=== PATIENT | female | born 1990 | race Caucasian/White ===

== ENCOUNTER 2018-06-30 19:46 | Emergency (ER) | payer BC ==
--- NOTE | 2018-06-30 20:12 | ED ---
Lower Extremity - HPI Summary HPI Summary: [facility] patient [facility] 27 [facility] [place] status post fall from a horse when the horse stumbled. Pt reports that she was not wearing a helmet when she fell. The patient rates the pain 2/10 in severity. Symptoms aggravated by nothing. Symptoms alleviated by nothing. Patient reports dizziness (resolved), right ankle pain, and right ankle swelling. Patient denies headache and neck pain. - History of Current Complaint Chief Complaint: EDExtremityLower Stated Complaint: FALL Time Seen by Provider: 06/30/18 20:04 Hx Obtained From: Patient Mechanism Of Injury: Fall From Height Of: - Horse Onset of Pain: Immediate, Post Accident Onset/Duration: Still Present Severity Initially: Mild Severity Currently: Mild Pain Intensity: 2 Pain Scale Used: 0-10 Numeric Timing: Constant Location: Is Discrete @ - Right ankle Character Of Pain: Throbbing Associated Signs And Symptoms: Positive: Other - Positive dizziness (resolved) and right ankle swelling. Negative headache and neck pain. Aggravating Factor(s): Movement Alleviating Factor(s): Nothing PMH/Surg Hx/FS Hx/Imm Hx Previously Healthy: Yes Opthamlomology History: Denies: Hx Legally Blind EENT History: Denies: Hx Deafness - Surgical History Hx Anesthesia Reactions: No Infectious Disease History: No Infectious Disease History: Denies: Traveled Outside the [place] in Last 30 Days - Family History Known Family History: Positive: Diabetes Negative: Cardiac Disease - Social History Occupation: Employed Full-time Lives: With Family Alcohol Use: Occasionally Hx Substance Use: No Substance Use Type: Reports: None Hx Tobacco Use: No Smoking Status (MU): Unknown if Ever Smoked Review of Systems Positive: Other - Positive right ankle pain and right ankle swelling. Negative neck pain Neurological: Other - Positive dizziness Negative: Headache All Other Systems Reviewed And Are Negative: Yes Physical Exam - Summary Physical Exam Summary: Appearance: Well-appearing, Well-nourished, lying in bed comfortable, no signs of head trauma Skin: Warm, dry, no obvious rash Eyes: sclera anicteric, no conjunctival pallor ENT: mucous membranes moist Neck: full ROM, no tenderness Respiratory: No signs of respiratory distress Cardiovascular: Appears well perfused, pulses are nml Abdomen: deferred Musculoskeletal: Moving all 4 extremities without obvious discomfort. RLE calf is nml no signs of trauma, nml [place] test, ankle tenderness and welling over the medial malleolus. Swelling mid dorsal foot with minimal associated tenderness. Tenderness over proximal fibula Neurological: Awake and alert, mentation is normal, speech is fluent and appropriate Psychiatric: affect is normal, does not appear anxious or depressed Triage Information Reviewed: Yes Vital Signs On Initial Exam: Initial Vitals Temp Pulse Resp BP Pulse Ox 98 F 66 16 92/57 100 06/30/18 19:49 06/30/18 19:49 06/30/18 19:49 06/30/18 19:49 06/30/18 19:49 Vital Signs Reviewed: Yes Procedures - Splinting Right Lower Extremity Location: RLE Hand-Made Type: orthoglass Splint: R shortleg posterior splint Pre-Proc Neuro Vasc Exam: normal Post-Proc Neuro Vasc Exam: normal Diagnostics - Vital Signs Vital Signs Temp Pulse Resp BP Pulse Ox 06/30/18 19:49 98 F 66 16 92/57 100 - Laboratory Lab Statement: Any lab studies that have been ordered have been reviewed, and results considered in the medical decision making process. - Radiology R Ankle XR Radiology Interpretation Completed By: ED Physician - Right ankle XR reveals, per ED physician, fracture of posterior and medial malleoli as well as non- displaced fx mid fibula. Ankle mortise looks non displaced. R Foot XR Radiology Interpretation Completed By: ED Physician - Right foot XR reveals, per ED physician, non-displaced fractures of the distal 2nd and 3rd metatarsals. RLE XR Radiology Interpretation Completed By: ED Physician - Right lower extremity XR reveals, per ED physician, non-displaced fracture of the mid-fibula. Post-splinting R Ankle XR Radiology Interpretation Completed By: ED Physician - R ankle XR reveals, per ED physician, stability of the ankle joint and good position of the fracture fragments. Re-Evaluation - Re-Evaluation First Eval Re-Evaluation Time: 20:19 Change: Unchanged Comment: I palpated further up the leg, and she does have tenderness over the proximal fibula. Lower Extremity Course/Dx - Diagnoses Provider Diagnoses: Metatarsal fracture, Bimalleolar ankle fracture, Fracture, fibula, shaft - Physician Notifications Discussed Care Of Patient With: Varun Mix Time Discussed With Above Provider: 20:44 Instructed by Provider To: Other - Consult with Dr. Mix (orthopedics) at 2044. He recommends a posterior splint, and x-rays after splinting. He will follow up with her in 2 days. Discharge - Sign-Out/Discharge Documenting (check all that apply): Patient Departure - Discharge Plan Condition: Good Disposition: HOME Patient Education Materials: Ankle Fracture (ED), Crutch Instructions (ED), Foot Fracture in Adults (ED), Splint Care (ED) Referrals: Jason Linder MD [Primary Care Provider] - Varun Mix MD [Medical Doctor] - Additional Instructions: You are non weight bearing until cleared to bear weight by your orthopedic surgeon. Keep the leg elevated as much as possible, and ice frequently to minimize swelling. - Billing Disposition and Condition Condition: GOOD Disposition: Home - Attestation Statements Document Initiated by Gabibe: Yes Documenting Scribe: Nelly Warren Provider For Whom Scribe is Documenting (Include Credential): Yadiel Boston MD Scribe Attestation: INelly, scribed for Yadiel Boston MD on 07/01/18 at 0418. Scribe Documentation Reviewed: Yes Provider Attestation: The documentation as recorded by the Nelly hurley accurately reflects the service I personally performed and the decisions made by me, Yadiel Boston MD
[2018-06-30] MEDS ORDERED: Ibuprofen TAB* 400 MG PO ONE (22:09)
[2018-06-30 22:28] VITALS: BP 100/69
--- NOTE | 2018-07-01 07:56 | RAD ---
HISTORY: trauma, right foot pain COMPARISONS: None VIEWS: 8 , Frontal, lateral, and oblique views of the right ankle and right foot with frontal and lateral views of the right foreleg FINDINGS: BONE DENSITY: Normal. BONES: There are fractures of the heads of the second and third metatarsals with minimal angulation without displacement. There is a minimally displaced and angulated fracture of the distal diaphysis of the fibula. There is a nondisplaced transverse fracture through the medial malleolus with articular extension and through the posterior distal tibia. The tibiofibular and tibiotalar interval is normal. On the oblique view of the right ankle, there is a probable fracture through the cuboid with articular extension. JOINTS: There is no arthropathy. ALIGNMENT: There is no dislocation. SOFT TISSUES: Unremarkable. OTHER FINDINGS: None. IMPRESSION: 1. FRACTURES OF THE HEADS OF THE SECOND AND THIRD METATARSALS. 2. FRACTURE OF THE DISTAL FIBULAR DIAPHYSIS. 3. FRACTURE OF THE POSTERIOR AND MEDIAL MALLEOLI. 4. FRACTURE OF THE CUBOID Findings were discussed with Dr. Sena at approximately 7:53 AM on July 01, 2018. R3
--- NOTE | 2018-07-01 07:56 | ED ---
Re-Evaluation - Re-Evaluation First Eval Re-Evaluation Time: 20:19 Change: Unchanged Comment: I palpated further up the leg, and she does have tenderness over the proximal fibula. Course/Dx - Course Course Of Treatment: Dr. Barrera called a cuboid fracture to me as an over read for this morning. The patient is nonweightbearing and has orthopedic follow-up within 48 hours. No change in management necessary - Diagnoses Provider Diagnoses: Metatarsal fracture, Bimalleolar ankle fracture, Fracture, fibula, shaft, Cuboid fracture - Provider Notifications Time Discussed With Above Provider: 20:44 Instructed by Provider To: Other - Consult with Dr. Mix (orthopedics) at 2043. He recommends a posterior splint, and x-rays after splinting. He will follow up with her in 2 days. Discharge - Sign-Out/Discharge Documenting (check all that apply): Patient Departure, Post-Discharge Follow Up - Discharge Plan Condition: Good Disposition: HOME Patient Education Materials: Ankle Fracture (ED), Crutch Instructions (ED), Foot Fracture in Adults (ED), Splint Care (ED) Referrals: Jason Linder MD [Primary Care Provider] - Varun Mix MD [Medical Doctor] - Additional Instructions: You are non weight bearing until cleared to bear weight by your orthopedic surgeon. Keep the leg elevated as much as possible, and ice frequently to minimize swelling. - Billing Disposition and Condition Condition: GOOD Disposition: Home
--- NOTE | 2018-07-01 08:03 | RAD ---
HISTORY: post splinting COMPARISONS: June 30, 2018 at 8:11 PM VIEWS: 2 , Frontal and lateral views of the right ankle FINDINGS: BONE DENSITY: Normal. BONES: Again noted are fractures of the posterior and medial malleoli and fibular diaphysis and the cuboid bone. The metatarsal fractures are not well-visualized on the current examination. A splint is noted. JOINTS: There is no arthropathy. ALIGNMENT: There is no dislocation. SOFT TISSUES: Unremarkable. OTHER FINDINGS: None. IMPRESSION: AGAIN NOTED ARE FRACTURES OF THE POSTERIOR AND MEDIAL MALLEOLI, FIBULAR DIAPHYSIS, AND CUBOID BONE R1
== END 2018-06-30 22:26 | disposition home or self-care (01) ==
LOC: ED 19:46
DX: S82.401A Unspecified fracture of shaft of right fibula, initial encounter for closed fracture (principal); S82.841A Displaced bimalleolar fracture of right lower leg, initial encounter for closed fracture; S92.309A Fracture of unspecified metatarsal bone(s), unspecified foot, initial encounter for closed fracture; V80.010A Animal-rider injured by fall from or being thrown from horse in noncollision accident, initial encounter; Y93.52 Activity, horseback riding; Y92.9 Unspecified place or not applicable
CPT/HCPCS: 99282; A9270-GY